=== PATIENT | female | born 1975 ===

== ENCOUNTER 2025-01-21 06:20 | Day surgery (SDC) | payer BC, SELFPAY | END 2025-01-21 09:23 | disposition home or self-care (01) | LOC: GI 06:20 | PROVIDERS: ATTENDING PHYSICIAN Internal Medicine Gastroenterology | DX: K64.0 First degree hemorrhoids (principal); K63.89 Other specified diseases of intestine; K50.10 Crohn's disease of large intestine without complications; K62.6 Ulcer of anus and rectum; K63.5 Polyp of colon; K52.9 Noninfective gastroenteritis and colitis, unspecified | CPT/HCPCS: 45385; 45380; 88305 ==